=== PATIENT | male | born 1945 | race Caucasian/White ===

== ENCOUNTER 2016-08-22 18:34 | Emergency (ER) | payer OTHER ==
[2016-08-22 18:42] VITALS: TEMP 98.2
--- NOTE | 2016-08-22 19:09 | CPEKG ---
Heart Rate: 73 RR Interval: 822 QRSD Interval: 132 QT Interval: 352 QTC Interval: 388 QRS [place]: 43 T Wave [place]: 48 EKG Severity - ABNORMAL ECG - EKG Impression: ATRIAL FLUTTER, A-RATE 245 EKG Impression: IVCD, CONSIDER ATYPICAL RBBB Electronically Signed By: Cecil Ruano 22-Aug-2016 22:32:10
--- NOTE | 2016-08-22 19:13 | EDPHY ---
H & P Stated Complaint: HYPOTESION HPI/ROS: HPI CHIEF COMPLAINT: Tachycardia, hypotension HISTORY OF PRESENT ILLNESS: This patient very pleasant 71-year-old male, no cardiac history except for PVCs, he presents emergency room by private vehicle with his for irregular heartbeat, fast heart rate and somewhat low breath pressure. He states over the past week he has been feeling fatigued. He denies chest pain or shortness of breath. He tells me that for the past week he has been fatigue. Patient states the highest heart rate he saw was 122. Blood pressure 90 systolic. Upon arrival here he is resting comfortably stable vital signs. Denies chest pain shortness of breath. Patient's prepleater is Dr. Navarro. Past Medical History: Thyroid disease, hypertension takes lisinopril and Toprol XL 25 mg, PVC Past Surgical History: No recent surgical history Social History: Denies daily use of drugs alcohol tobacco products Family History: Noncontributory ROS REVIEW OF SYSTEMS: A comprehensive 10 point review of systems is otherwise negative aside from elements mentioned in the history of present illness. Exam Constitutional appears well nontoxic, triage nursing summary reviewed, vital signs reviewed, awake/alert. Eyes normal conjunctivae and sclera, EOMI, PERRLA. HENT normal inspection, atraumatic, moist mucus membranes, no epistaxis, neck supple/ no meningismus, no raccoon eyes. Respiratory clear to auscultation bilaterally, normal breath sounds, no respiratory distress, no wheezing. Cardiovascular irregular, irregular rhythm no murmur, no edema, distal pulses normal. Gastrointestinal soft, non-tender, no rebound, no guarding, normal bowel sounds, no distension, no pulsatile mass. Genitourinary no CVA tenderness. Musculoskeletal no midline vertebral tenderness, full range of motion, no calf swelling, no tenderness of extremities, no meningismus, good pulses, neurovascularly intact. Skin pink, warm, & dry, no rash, skin atraumatic. Neurologic awake, alert and oriented x 3, AAOx3, moves all 4 extremities equally, motor intact, sensory intact, CN II-XII intact, normal cerebellar, normal vision, normal speech. Psychiatric normal mood/affect. Heme/Lymph/Immune no lymphadenopathy. Differential Diagnosis: Includes but is not limited to in a particular order, atrial fibrillation, a flutter, electrolyte disturbance, thyroid disease, doubt acute coronary syndrome Medical Decision Making: Plan for this patient IV establishment, check blood work, electrolytes, thyroid, EKG, chest x-ray. Re-evaluation: EKG interpretation by me on record in [place] system. Impression time of EKG 1906 this shows a cardiac rate of 73, appears to be a underlying atrial flutter rhythm 3-1 block. This also could be atrial fib. 2030: I spoke with Dr. Moy with Cardiology on-call. He does recommend starting this patient on Eliquis. Patient does not need any rate control at this time is heart rates in the 70s. Blood pressure stable. He has no chest pain or shortness of breath. He would like the patient follow up with Dr. Becka Navarro. Started on Eliquis continue his Toprol XL. 2031: Updated patient. He is agreeable for starting on Eliquis. He understands what to return back to the emergency room for. Understands follow- up with Dr. Becka Navarro outpatient. 2099: After great discussion with this patient he agrees for starting Eliquis. Agrees to follow up with Cardiology outpatient. He is comfortable this plan. Here in the emergency room is no evidence of ischemic heart disease causing AFib. Cardiology has been consulted. Patient's troponins negative. No chest pain. Comfortable discharge. His vital signs are stable. Rate controlled. Continue his home metoprolol. Understands return precautions includes chest pain, shortness of breath, syncope fast heart rate low blood pressure. Not feeling well. Source: Patient - Personal History Current Tetanus/Diphtheria Vaccine: Yes - Medical/Surgical History Hx Asthma: Yes Hx Chronic Respiratory Disease: No Hx Diabetes: No Hx Cardiac Disease: No Hx Renal Disease: No Hx Cirrhosis: No Hx Alcoholism: No Hx HIV/AIDS: No Hx Splenectomy or Spleen Trauma: No Other PMH: HYPOTHYROID. HTN, - Social History Smoking Status: Former smoker Constitutional: Initial Vital Signs Temperature (C) 36.8 C 08/22/16 18:38 Heart Rate 110 H 08/22/16 18:38 Respiratory Rate 18 08/22/16 18:38 Blood Pressure 120/86 H 08/22/16 18:38 O2 Sat (%) 96 08/22/16 18:38 O2 Delivery Mode Room Air Allergies/Adverse Reactions: No Known Allergies Allergy (Unverified 08/22/16 18:41) Home Medications: Medication Instructions Recorded ASPIRIN 08/22/16 Apixaban [Eliquis] 5 mg PO BID #60 tab 08/22/16 FOLIC ACID 08/22/16 Lisinopril 08/22/16 METHIMAZOLE 08/22/16 SIMVASTATIN 08/22/16 Toprol Xl 25 mg (*) 08/22/16 Medical Decision Making - Diagnostics Imaging Results: Imaging Impressions Chest X-Ray 08/22/16 19:23 Impression: Query COPD with no superimposed acute abnormality identified. - Data Points Laboratory Results: Laboratory Results 08/22/16 19:14 08/22/16 19:14 08/22/16 08/22/16 08/22/16 19:14 19:14 19:14 WBC RBC Hgb Hct MCV MCH MCHC RDW Plt Count MPV Neut % (Auto) Lymph % (Auto) [place] % (Auto) Eos % (Auto) Baso % (Auto) Nucleat RBC Rel Count Absolute Neuts (auto) Absolute Lymphs (auto) Absolute Monos (auto) Absolute Eos (auto) Absolute Basos (auto) Absolute Nucleated RBC Immature Gran % Immature Gran # PT 13.8 SEC SEC (12.0-15.0) INR 1.07 (0.83-1.16) APTT 28.2 SEC SEC (23.0-38.0) D-Dimer 0.41 ug/mLFEU ug/mLFEU (0.00-0.50) Sodium 139 mEq/L mEq/L (134-144) Potassium 4.8 mEq/L mEq/L (3.5-5.2) Chloride 104 mEq/L mEq/L (97-110) Carbon Dioxide 25 mEq/l mEq/l (22-31) Anion Gap 10 mEq/L mEq/L (8-16) BUN 20 mg/dL mg/dL (7-23) Creatinine 1.1 mg/dL mg/dL (0.7-1.3) Estimated GFR > 60 Glucose 90 mg/dL mg/dL (70-100) Calcium 9.6 mg/dL mg/dL (8.5-10.4) Magnesium 2.0 mg/dL mg/dL (1.6-2.3) Total Bilirubin 0.8 mg/dL mg/dL (0.1-1.4) Conjugated Bilirubin 0.2 mg/dL mg/dL (0.0-0.5) Unconjugated Bilirubin 0.6 mg/dL mg/dL (0.0-1.1) AST 30 IU/L IU/L (17-59) ALT 37 IU/L IU/L (21-72) Alkaline Phosphatase 50 IU/L IU/L (38-126) Troponin I < 0.012 ng/mL ng/mL (0-0.034) NT-Pro-B Natriuret Pep 347 pg/mL H pg/mL (0-125) Total Protein 7.3 g/dL g/dL (6.3-8.2) Albumin 4.2 g/dL g/dL (3.5-5.0) TSH 2.580 uIU/mL uIU/mL (0.465-4.680) 08/22/16 19:14 WBC 5.63 10^3/uL 10^3/uL (3.80-9.50) RBC 4.18 10^6/uL L 10^6/uL (4.40-6.38) Hgb 14.4 g/dL g/dL (13.7-17.5) Hct 41.4 % % (40.0-51.0) MCV 99.0 fL fL (81.5-99.8) MCH 34.4 pg H pg (27.9-34.1) MCHC 34.8 g/dL g/dL (32.4-36.7) RDW 13.9 % % (11.5-15.2) Plt Count 206 10^3/uL 10^3/uL (150-400) MPV 9.8 fL fL (8.7-11.7) Neut % (Auto) 59.8 % % (39.3-74.2) Lymph % (Auto) 28.6 % % (15.0-45.0) [place] % (Auto) 7.5 % % (4.5-13.0) Eos % (Auto) 3.2 % % (0.6-7.6) Baso % (Auto) 0.7 % % (0.3-1.7) Nucleat RBC Rel Count 0.0 % % (0.0-0.2) Absolute Neuts (auto) 3.37 10^3/uL 10^3/uL (1.70-6.50) Absolute Lymphs (auto) 1.61 10^3/uL 10^3/uL (1.00-3.00) Absolute Monos (auto) 0.42 10^3/uL 10^3/uL (0.30-0.80) Absolute Eos (auto) 0.18 10^3/uL 10^3/uL (0.03-0.40) Absolute Basos (auto) 0.04 10^3/uL 10^3/uL (0.02-0.10) Absolute Nucleated RBC 0.00 10^3/uL 10^3/uL (0-0.01) Immature Gran % 0.2 % % (0.0-1.1) Immature Gran # 0.01 10^3/uL 10^3/uL (0.00-0.10) PT INR APTT D-Dimer Sodium Potassium Chloride Carbon Dioxide Anion Gap BUN Creatinine Estimated GFR Glucose Calcium Magnesium Total Bilirubin Conjugated Bilirubin Unconjugated Bilirubin AST ALT Alkaline Phosphatase Troponin I NT-Pro-B Natriuret Pep Total Protein Albumin TSH Medications Given: Discontinued Medications Sodium Chloride (Ns) 1,000 mls @ 0 mls/hr IV ONCE ONE; Wide Open PRN Reason: Protocol Stop: 08/22/16 19:23 Last Admin: 08/22/16 19:29 Dose: 1,000 mls Departure - Departure Disposition: Home, Routine, Self-Care Clinical Impression: Atrial fibrillation Qualifiers: Atrial fibrillation type: unspecified Qualified Code(s): I48.91 - Unspecified atrial fibrillation Condition: Good Instructions: A-fib (Atrial Fibrillation) (ED) Additional Instructions: 1. I believe you have a cardiac arrhythmia called atrial fibrillation however could also be atrial flutter. 2. We do recommend that you start on blood thinners. As this puts you at risk for stroke. 3. We also recommend that you follow up with Dr. Becka Navarro please call there tomorrow for an appointment 4. Return emergency room if you have chest pain, shortness of breath, you pass out or you have very low blood pressure hot high heart rate. Referrals: ALYSSA TOBIAS [Other] - As per Instructions Becka Navarro MD [Medical Doctor] - As per Instructions Prescriptions: Apixaban [Eliquis] 5 mg PO BID #60 tab
[2016-08-22] MEDS ORDERED: NS 1,000 ML IV ONE (19:22)
[2016-08-22 19:32] LABS: % IMMATURE GRANULYOCYTES 0.2 % (0.0-1.1); ABSOLUTE IMMATURE GRANULOCYTES 0.01 10^3/uL (0.00-0.10); ADD DIFF? NO; ADD MORPH? NO; ADD SCAN? NO; ATYPICAL LYMPHOCYTE FLAG 10 (0-99); FRAGMENT RBC FLAG 0 (0-99); HEMATOCRIT 41.4 % (40.0-51.0); HEMOGLOBIN 14.4 g/dL (13.7-17.5); LEFT SHIFT FLG 0 (0-99); LIPEMIA HEMOLYSIS FLAG 90 (0-99); MEAN CELL HEMOGLOBIN 34.4 pg (27.9-34.1); MEAN CELL HEMOGLOBIN CONCENTR. 34.8 g/dL (32.4-36.7); MEAN PLATELET VOLUME 9.8 fL (8.7-11.7); PLATELET CLUMPS FLAG 10 (0-99); PLATELET COUNT 206 10^3/uL (150-400); RED BLOOD CELL COUNT 4.18 10^6/uL (4.40-6.38); RED CELL DISTRIBUTION WIDTH 13.9 % (11.5-15.2)
[2016-08-22 19:38] LABS: ALANINE AMINOTRANSFERASE 37 IU/L (21-72); ALBUMIN 4.2 g/dL (3.5-5.0); ALKALINE PHOSPHATASE 50 IU/L (38-126); ANION GAP 10 mEq/L (8-16); ASPARTATE AMINOTRANSFERASE 30 IU/L (17-59); BILIRUBIN,TOTAL 0.8 mg/dL (0.1-1.4); BILIRUBIN-CONJUGATED 0.2 mg/dL (0.0-0.5); BILIRUBIN-UNCONJUGATED 0.6 mg/dL (0.0-1.1); CALCIUM 9.6 mg/dL (8.5-10.4); CARBON DIOXIDE 25 mEq/l (22-31); CHLORIDE 104 mEq/L (97-110); CREATININE 1.1 mg/dL (0.7-1.3); GLOMERULAR FILTRATION RATE > 60; GLUCOSE 90 mg/dL (70-100); POTASSIUM 4.8 mEq/L (3.5-5.2); SODIUM 139 mEq/L (134-144); TOTAL PROTEIN 7.3 g/dL (6.3-8.2)
[2016-08-22 19:39] LABS: INR 1.07 (0.83-1.16); PROTIME(PATIENT) 13.8 SEC (12.0-15.0)
[2016-08-22 19:40] LABS: APTT 28.2 SEC (23.0-38.0)
[2016-08-22] MEDS ORDERED: APIXABAN 5 MG TAB PO SCH ×2 (21:00)
[2016-08-22 21:33] VITALS: BP 133/85; PULSE 72; RESP 16; O2SAT 95
== END 2016-08-22 21:33 | disposition home or self-care (01) ==
DX: I48.91 Unspecified atrial fibrillation (principal); E86.9 Volume depletion, unspecified; I10 Essential (primary) hypertension; J45.909 Unspecified asthma, uncomplicated; Z87.891 Personal history of nicotine dependence

== ENCOUNTER 2016-12-13 12:07 | Day surgery (SDC) | payer OTHER ==
[2016-12-13] MEDS ORDERED: BENZOCAINE UNIT DOSE SPRAY HURRICAINE MM ONE (12:11)
[2016-12-13] MEDS ORDERED: NS 500 ML IV ONE (12:11)
[2016-12-13] MEDS ORDERED: ATROPINE SULFATE 1 MG/10 ML SYR IVP ONE (12:11)
--- NOTE | 2016-12-13 12:27 | CPEKG ---
Heart Rate: 102 RR Interval: 588 QRSD Interval: 148 QT Interval: 424 QTC Interval: 553 QRS [place]: 93 T Wave [place]: -73 EKG Severity - ABNORMAL ECG - EKG Impression: A-FLUTTER W/ PREDOM 2:1 AV BLOCK, A-RATE 205 EKG Impression: RBBB AND LPFB Electronically Signed By: Dustin Moy 13-Dec-2016 15:38:04
[2016-12-13 12:57] LABS: INR 1.25 (0.83-1.16); PROTIME(PATIENT) 15.7 SEC (12.0-15.0)
--- NOTE | 2016-12-13 13:31 | PDGENHP ---
History & Physical Chief Complaint: Persistent Atrial Flutter History of Present Illness: Presented in August with fatigue. Found to be in atrial flutter. Anticoag and CCB started. Amiodartone was added when a-flutter became persistent. Now scheduled for GREGORIO/DCCV. Pertinent Past, Social, Family History: See office note of 10/11/16. Relevant Physical Exam: A&O x 3. No distress. RRR w/o murmur. Lungs CTA. Abdomen soft, nontender. No edema.
[2016-12-13] MEDS ORDERED: PROPOFOL 200 MG/20 ML VIAL ONE (14:16)
--- NOTE | 2016-12-13 14:33 | PDTEE1 ---
GREGORIO Cardioversion Procedure Procedure: electrical cardioversion, transesophageal echo Indications: other (Atrial flutter) Consent: signed and in chart Anticoagulation: eliquis Procedural Details: Pads were placed in anterior-posterior position. GREGORIO probe was advanced and standard images obtained. There is no evidence of left atrial or left atrial appendage thrombus. Synchronized cardioversion attempt #1: 200J Results: normal sinus rhythm Conclusions: successful GREGORIO cardioversion
--- NOTE | 2016-12-13 14:53 | CPEKG ---
Heart Rate: 62 RR Interval: 968 P-R Interval: 220 QRSD Interval: 152 QT Interval: 476 QTC Interval: 484 P [place]: 85 QRS [place]: 90 T Wave [place]: -7 EKG Severity - ABNORMAL ECG - EKG Impression: SINUS RHYTHM EKG Impression: FIRST DEGREE AV BLOCK EKG Impression: RBBB AND LPFB Electronically Signed By: Dustin Moy 13-Dec-2016 15:35:04
--- NOTE | 2016-12-13 14:53 | CPEKG ---
Heart Rate: 62 RR Interval: 968 P-R Interval: 220 QRSD Interval: 152 QT Interval: 476 QTC Interval: 484 P [place]: 85 QRS [place]: 90 T Wave [place]: -7 EKG Severity - ABNORMAL ECG - EKG Impression: SINUS RHYTHM EKG Impression: FIRST DEGREE AV BLOCK EKG Impression: RBBB AND LPFB Electronically Signed By: Dustin Moy 13-Dec-2016 15:35:04
--- NOTE | 2016-12-13 16:27 | ECHO ---
[email or web address] [address] [address] Main: [phone] Fax: Transesophageal Echocardiography Name: AUDREY RUST MR#: [id number] Study Date: 12/13/2016 Study Time: 01:53 PM Date of : 1945 Age: 71 year(s) Height: ( ) Weight: ( ) BSA: Gender: Male Examination: GREGORIO Indication: Pre Cardioversion Image Quality: Contrast: Requested by: Nate Velez Heart Rate: Rhythm: Atrial flutter BP: / Procedure Staff Technical Aid: Kemal Reed Reading Physician: Nate Velez Requesting Provider: GREGORIO Exam Details Conclusions: Normal global systolic LV function. No regional wall motion abnormality. An agitated saline study was performed and was positive for intracardiac shunting. No thrombus in left appendage. Mild mitral valve regurgitation is present. Measurements: Chambers Valvular Assessment AV/MV Valvular Assessment TV/PV Normal Normal Normal Name Value Range Name Value Range Name Value Range Additional Measurements: Findings: Left Ventricle: Normal global systolic LV function. No regional wall motion abnormality. Right Ventricle: Normal size right ventricle. Normal RV function. Left Atrium: The left atrium is normal in size. An agitated saline study was performed and was positive for intracardiac shunting. Left Atrial Appendage: Good color flow doppler in the left atrial appendage. Normal PW-Doppler flow pattern. No thrombus Patient: AUDREY RUST Study Date: 12/13/2016 Page 1 of 2 01:53 PM in left appendage. Right Atrium: The right atrium is normal in size. Mitral Valve: The mitral valve is normal in appearance and function. Mild mitral valve regurgitation is present. Aortic Valve: The aortic valve is tri-leaflet. The aortic valve is normal in appearance and function. Tricuspid Valve: The tricuspid valve is normal in appearance and function. Pulmonic Valve: The pulmonic valve is normal in appearance and function. Aorta: The aorta is normal. Pericardium: No pericardial effusion. l1n (No Signature Object) Patient: AUDREY VARGASN: [id number] Study Date: 12/13/2016 Page 2 of 2 01:53 PM [id number]
--- NOTE | 2016-12-13 16:27 | ECHO ---
[email or web address] [address] [address] Main: [phone] Fax: Transesophageal Echocardiography Name: AUDREY RUST MR#: [id number] Study Date: 12/13/2016 Study Time: 01:53 PM Date of : 1945 Age: 71 year(s) Height: ( ) Weight: ( ) BSA: Gender: Male Examination: GREGORIO Indication: Pre Cardioversion Image Quality: Contrast: Requested by: Nate Velez Heart Rate: Rhythm: Atrial flutter BP: / Procedure Staff Agricultural Extension Agent: Kemal Reed Reading Physician: Nate Velez Requesting Provider: GREGORIO Exam Details Conclusions: Normal global systolic LV function. No regional wall motion abnormality. An agitated saline study was performed and was positive for intracardiac shunting. No thrombus in left appendage. Mild mitral valve regurgitation is present. Measurements: Chambers Valvular Assessment AV/MV Valvular Assessment TV/PV Normal Normal Normal Name Value Range Name Value Range Name Value Range Additional Measurements: Findings: Left Ventricle: Normal global systolic LV function. No regional wall motion abnormality. Right Ventricle: Normal size right ventricle. Normal RV function. Left Atrium: The left atrium is normal in size. An agitated saline study was performed and was positive for intracardiac shunting. Left Atrial Appendage: Good color flow doppler in the left atrial appendage. Normal PW-Doppler flow pattern. No thrombus Patient: AUDREY RUST Study Date: 12/13/2016 Page 1 of 2 01:53 PM in left appendage. Right Atrium: The right atrium is normal in size. Mitral Valve: The mitral valve is normal in appearance and function. Mild mitral valve regurgitation is present. Aortic Valve: The aortic valve is tri-leaflet. The aortic valve is normal in appearance and function. Tricuspid Valve: The tricuspid valve is normal in appearance and function. Pulmonic Valve: The pulmonic valve is normal in appearance and function. Aorta: The aorta is normal. Pericardium: No pericardial effusion. l1n (No Signature Object) Patient: AUDREY VARGASN: [id number] Study Date: 12/13/2016 Page 2 of 2 01:53 PM [id number]
--- NOTE | 2016-12-13 16:27 | ECHO ---
[email or web address] [address] [address] Main: [phone] Fax: Transesophageal Echocardiography Name: AUDREY RUST MR#: [id number] Study Date: 12/13/2016 Study Time: 01:53 PM Date of : 1945 Age: 71 year(s) Height: ( ) Weight: ( ) BSA: Gender: Male Examination: GREGORIO Indication: Pre Cardioversion Image Quality: Contrast: Requested by: Nate Velez Heart Rate: Rhythm: Atrial flutter BP: / Procedure Staff [employer] Program Coordinator: Kemal Reed Reading Physician: Nate Velez Requesting Provider: GREGORIO Exam Details Conclusions: Normal global systolic LV function. No regional wall motion abnormality. An agitated saline study was performed and was positive for intracardiac shunting. No thrombus in left appendage. Mild mitral valve regurgitation is present. Measurements: Chambers Valvular Assessment AV/MV Valvular Assessment TV/PV Normal Normal Normal Name Value Range Name Value Range Name Value Range Additional Measurements: Findings: Left Ventricle: Normal global systolic LV function. No regional wall motion abnormality. Right Ventricle: Normal size right ventricle. Normal RV function. Left Atrium: The left atrium is normal in size. An agitated saline study was performed and was positive for intracardiac shunting. Left Atrial Appendage: Good color flow doppler in the left atrial appendage. Normal PW-Doppler flow pattern. No thrombus Patient: AUDREY RUST Study Date: 12/13/2016 Page 1 of 2 01:53 PM in left appendage. Right Atrium: The right atrium is normal in size. Mitral Valve: The mitral valve is normal in appearance and function. Mild mitral valve regurgitation is present. Aortic Valve: The aortic valve is tri-leaflet. The aortic valve is normal in appearance and function. Tricuspid Valve: The tricuspid valve is normal in appearance and function. Pulmonic Valve: The pulmonic valve is normal in appearance and function. Aorta: The aorta is normal. Pericardium: No pericardial effusion. l1n (No Signature Object) Patient: AUDREY VARGASN: [id number] Study Date: 12/13/2016 Page 2 of 2 01:53 PM [id number]
== END 2016-12-13 16:22 | disposition home or self-care (01) ==
LOC: FCATH 12:07
PROVIDERS: ATTEND Internal Medicine Interventional Cardiology
PROC: B245ZZ4 Ultrasonography of Left Heart, Transesophageal (ICD-10-PCS; principal; 2016-12-13)
PROC: 5A2204Z Restoration of Cardiac Rhythm, Single (ICD-10-PCS; principal; 2016-12-13)
DX: I48.1 Persistent atrial fibrillation (principal); Z79.01 Long term (current) use of anticoagulants
CPT/HCPCS: J2704